=== PATIENT | female | born 1960 | race Caucasian/White ===

== ENCOUNTER 2017-08-14 22:03 | Inpatient (IN) | payer MEDICARE, MEDICAID ==
[~2017-08-14] VITALS: Ht 165.1 cm; Wt 51.7 kg
--- NOTE | 2017-08-14 22:35 | NUR ---
Pt refused rectal exam Dr. Peters notified
[2017-08-14 22:46] LABS: LYMPHOCYTES # (AUTO) 1.1 K/uL (20.0-40.0)
[2017-08-14 22:54] LABS: BASOPHILS % (AUTO) 0.5 % (0.0-2.0); EOSINOPHILS % (AUTO) 0.7 % (0.0-7.0); LYMPHOCYTES % (AUTO) 15.4 % (20.5-51.5); MEAN CORPUSCULAR HEMOGLOBIN 31.7 uug (24.7-32.8); MEAN CORPUSCULAR HGB CONC 33 g/dL (32.3-35.6); MEAN CORPUSCULAR VOLUME 95.2 fL (75.5-95.3); MONOCYTES # (AUTO) 0.4 K/uL (2.0-10.0); MONOCYTES % (AUTO) 6.2 % (0.0-11.0); NEUTROPHILS # (AUTO) 5.4 K/uL (1.8-8.9); NEUTROPHILS % (AUTO) 77.2 % (38.5-71.5); PLATELET COUNT (AUTO) 216 K/uL (179-408)
[2017-08-14 22:58] LABS: BILIRUBIN,DIRECT 0.1 mg/dL (0.0-0.2); BILIRUBIN,TOTAL 0.4 mg/dL (0.2-1.0); TOTAL PROTEIN, SERUM 5.8 g/dL (6.4-8.2)
[2017-08-14 23:02] LABS: RED BLOOD CELL COUNT(AUTO) 2.12 MIL/uL (3.63-4.92)
[2017-08-14 23:04] LABS: HEMOGLOBIN 6.7 g/dL (10.9-14.3)
[2017-08-14 23:05] LABS: HEMATOCRIT 20.2 % (31.2-41.9)
[2017-08-14 23:24] LABS: POTASSIUM 4.9 mmol/L (3.5-5.1)
[2017-08-15] VITALS (9 sets, daily range): BP systolic 95–175; BP diastolic 48–74
[2017-08-15 00:31] LABS: BAND % (MANUAL) 2 % (0-10); LYMPHOCYTES % (MANUAL) 14 % (20-40); MONOCYTES % (MANUAL) 2 % (2-10); NEUTROPHILS % (MANUAL) 82 % (42-75)
--- NOTE | 2017-08-15 00:39 | NUR ---
[facility] paged for Dr Peters
--- NOTE | 2017-08-15 02:00 | NUR ---
Pt. admitted to TELE, under care of Dr. MARTIN Belongs List completed
--- NOTE | 2017-08-15 02:15 | NUR ---
RECEIVED PT FROM ER BY Gabriela MONTEMAYOR. PT IS ALERT BUT VERY CONFUSED. PT IS ADMITTED TO TELE UNDER THE CARE OF DR MARTIN. DX: ANEMIA. BELONGING LIST DONE. ADMISSION PROCESS AND CAREPLAN INITIATED. WILL CALL MD FOR NEW ADMISSION ORDERS.
--- NOTE | 2017-08-15 04:00 | NUR ---
ERVIN CYR CALLED DR. MARTIN FOR MED RECONCILIATION AND NEW ADMISSION ORDERS. PER MD, WILL TAKE CARE OF NEW ADMISSION ORDERS IN THE MORNING.
--- NOTE | 2017-08-15 04:45 | NUR ---
CALLED FAMILY SPOKE WITH PT SON AND [id number] TO OBTAIN CONSENT FOR BLOOD TRANSFUSION. PT IS UNABLE TO PROVEIDE CONSENT ON HER OWN DUE TO MENTAL STATUS/CONDITION. FAMILY GAVE CONSENT BY A TELEPHONE AND WITNESSED BY 2 LICENSED RN. PT FAMILY VERBALIZE UNDERSTANDING. CONSENT FOR BLOOD TRANSFUSION PLACED IN PT CHART.
[2017-08-15] MEDS ORDERED: INSU100V (05:08)
[2017-08-15] MEDS ORDERED: PROHEAL PO (05:08)
[2017-08-15] MEDS ORDERED: CYAN10009 PO (05:25)
[2017-08-15] MEDS ORDERED: FOLI0.8T2 PO (05:25)
[2017-08-15] MEDS: ACETAMINOPHEN 325 MG TABLET PO PRN ×2 (05:26→22:07)
[2017-08-15 05:34] LABS: *OCCULT BLOOD STOOL POSITIVE (NEGATIVE)
--- NOTE | 2017-08-15 05:40 | NUR ---
STARTED BLOOD TRANSFUSION FOLLOWED THE PROTOCOL. VITAL SIGNS TAKEN AND WILL CONTINUE TO MONITOR .
--- NOTE | 2017-08-15 06:00 | NUR ---
CALLED ER SEVERAL TIMES TO GET PATIENT'S TMS. ORDERS PENDING OF THIS TIME.
--- NOTE | 2017-08-15 06:00 | NUR ---
BLOOD TRANSFUSING. PT TOLERATING THE PROCEDURE WELL. PT IS IN NO DISTRESS. NO SOB. NO ADVERSE REACTION.
--- NOTE | 2017-08-15 06:45 | NUR ---
BLOOD TRANSFUSING, PATIENT IS ALERT, NO SIGNS OF DISTRESS. ENDORSED TO DAY SHIFT RN TO CONTINUE BLOOD TRANSFUSION, MONITOR AND COMPLETE/END TRANSFUSION WHEN DONE.
[2017-08-15] MEDS ORDERED: DEXTROSE 50% 50 ML DISP.SYRIN IV PRN (08:00)
[2017-08-15] MEDS ORDERED: INSULIN REGULAR, HUMAN 300 UNIT/3 ML VIAL SQ PRN (08:00)
--- NOTE | 2017-08-15 11:08 | NUR ---
Patient refusing to wear the tele monitor.
[2017-08-15] MEDS: BLOOD SUGAR DIAGNOSTIC 1 EACH STRIP VI SCH ×3 (11:44→21:00)
[2017-08-15 11:52] LABS: BASOPHILS % (AUTO) 0.4 % (0.0-2.0); EOSINOPHILS % (AUTO) 0.6 % (0.0-7.0); HEMATOCRIT 24.9 % (31.2-41.9); HEMOGLOBIN 8.5 g/dL (10.9-14.3); LYMPHOCYTES # (AUTO) 1.1 K/uL (20.0-40.0); LYMPHOCYTES % (AUTO) 15.4 % (20.5-51.5); MEAN CORPUSCULAR HGB CONC 34 g/dL (32.3-35.6); MEAN CORPUSCULAR VOLUME 93.3 fL (75.5-95.3); MONOCYTES # (AUTO) 0.4 K/uL (2.0-10.0); MONOCYTES % (AUTO) 5.6 % (0.0-11.0); NEUTROPHILS # (AUTO) 5.3 K/uL (1.8-8.9); PLATELET COUNT (AUTO) 214 K/uL (179-408); RED BLOOD CELL COUNT(AUTO) 2.66 MIL/uL (3.63-4.92); WHITE BLOOD COUNT (AUTO) 6.8 K/uL (3.8-11.8)
[2017-08-15 12:05] LABS: CREATININE 5.5 mg/dL (0.6-1.3); PHOSPHOROUS 3.2 mg/dL (2.5-4.9); POTASSIUM 5.3 mmol/L (3.5-5.1)
[2017-08-15] MEDS: QUETIAPINE FUMARATE 25 MG TABLET PO PRN ×2 (15:19→22:07)
[2017-08-15] MEDS: FOLIC ACID/VITAMIN B COMP W-C TABLET PO SCH (15:35)
[2017-08-15] MEDS: PANTOPRAZOLE SODIUM 40 MG VIAL IV SCH ×2 (15:35→22:07)
[2017-08-15] MEDS: INSULIN DETEMIR 300 UNIT/3 ML CARTRIDGE SQ SCH (21:00)
--- NOTE | 2017-08-15 22:21 | NUR ---
NURSING CLINICAL NOTE: Pt has a BS of 65, Alert, oriented. orange juice and apple sauce were given will continue to monitor.
--- NOTE | 2017-08-15 22:36 | NUR ---
NURSING CLINICAL NOTE: Pt has a BP of 175/66 mmHg. denies pain, or SOB. is notified. no new orders. will continue to monitor.
--- NOTE | 2017-08-15 22:51 | NUR ---
NURSING CLINICAL NOTE: Rechecked BS and found 104. pt is asymptomatic. will continue to monitor.
[2017-08-16] VITALS (7 sets, daily range): BP systolic 136–175; BP diastolic 60–75
--- NOTE | 2017-08-16 06:48 | NUR ---
NURSING CLINICAL NOTE: Pt has the latest BS 71, crackers and apple sauce were given, will continue to monitor and endorse pt to the next nurse to follow up.
[2017-08-16] MEDS: BLOOD SUGAR DIAGNOSTIC 1 EACH STRIP VI SCH ×4 (06:51→21:16)
[2017-08-16 07:25] LABS: BASOPHILS % (AUTO) 0.3 % (0.0-2.0); EOSINOPHILS # (AUTO) 0.1 K/uL (0.0-0.7); EOSINOPHILS % (AUTO) 0.9 % (0.0-7.0); HEMATOCRIT 26.4 % (31.2-41.9); HEMOGLOBIN 8.9 g/dL (10.9-14.3); LYMPHOCYTES # (AUTO) 1.1 K/uL (20.0-40.0); LYMPHOCYTES % (AUTO) 12.2 % (20.5-51.5); MEAN CORPUSCULAR HEMOGLOBIN 31.3 uug (24.7-32.8); MEAN CORPUSCULAR HGB CONC 34 g/dL (32.3-35.6); MEAN CORPUSCULAR VOLUME 92.9 fL (75.5-95.3); MONOCYTES # (AUTO) 0.5 K/uL (2.0-10.0); MONOCYTES % (AUTO) 5.3 % (0.0-11.0); NEUTROPHILS # (AUTO) 7.2 K/uL (1.8-8.9); NEUTROPHILS % (AUTO) 81.3 % (38.5-71.5); PLATELET COUNT (AUTO) 227 K/uL (179-408); RED BLOOD CELL COUNT(AUTO) 2.85 MIL/uL (3.63-4.92); WHITE BLOOD COUNT (AUTO) 8.8 K/uL (3.8-11.8)
[2017-08-16 07:45] LABS: BILIRUBIN,TOTAL 0.6 mg/dL (0.2-1.0); CREATININE 6.3 mg/dL (0.6-1.3); MAGNESIUM 2.5 mg/dL (1.8-2.4); PHOSPHOROUS 3.8 mg/dL (2.5-4.9); POTASSIUM 5.6 mmol/L (3.5-5.1)
[2017-08-16] MEDS ORDERED: CYANOCOBALAMIN 1,000 MCG TABLET PO SCH (09:00)
[2017-08-16] MEDS ORDERED: FOLIC ACID/VITAMIN B COMP W-C TABLET PO SCH (09:00)
[2017-08-16] MEDS: FOLIC ACID/VITAMIN B COMP W-C TABLET PO SCH (09:08)
[2017-08-16] MEDS: PANTOPRAZOLE SODIUM 40 MG VIAL IV SCH ×2 (09:59→20:34)
[2017-08-16] MEDS ORDERED: AZITHROMYCIN IV 250 MG in IV DEXTROSE 5% 250 ML IV SCH (15:00)
--- NOTE | 2017-08-16 20:00 | NUR ---
RECEIVED PATIENT AWAKE IN BED. ALERT TO SELF. PATIENT IS CONFUSED AND DISORIENTED AND NEEDS FREQUENT REDIRECTION. DENIES PAIN OR DISCOMFORT. NO FACIAL GRIMACE NOTED. H/L INTACT AND PATENT. CALL LIGHT IN REACH. BED ALARM ON. ALL NEEDS ATTENDED. WILL CONTINUE TO MONITOR.
[2017-08-16] MEDS: INSULIN DETEMIR 300 UNIT/3 ML CARTRIDGE SQ SCH (21:17)
--- NOTE | 2017-08-17 03:45 | NUR ---
PATIENT AWAKE IN BED. ASKING FOR FOOD AND THEN STATING SHE IS TIRED. CONFUSED AT TIMES. MADE COMFORTABLE. BED ALARM ON. ALL NEEDS ATTENDED. WILL CONTINUE TO MONITOR. CALL LIGHT IN REACH.
--- NOTE | 2017-08-17 04:52 | NUR ---
PATIENT FOUND UNRESPONSIVE IN BED. CAROLYN WOODS CALLED AND CPR STARTED.
[2017-08-17] MEDS ORDERED: SODIUM BICARBONATE 8.4% 50 MEQ/50 ML DISP.SYRIN IV ONE (05:00)
[2017-08-17] MEDS ORDERED: IV NORMAL SALINE 1000 ML BAG ONE (05:00)
[2017-08-17] MEDS ORDERED: EPINEPHRINE 1:10,000 1 MG/10 ML DISP.SYRIN ONE (05:00)
[2017-08-17] MEDS ORDERED: ATROPINE SULFATE 1 MG/10 ML DISP.SYRIN ONE (05:00)
--- NOTE | 2017-08-17 05:08 | NUR ---
PATIENT PRONOUNCED PER DR. JIMÉNEZ.
--- NOTE | 2017-08-17 05:25 | NUR ---
CALLED OUT TO DR. DYE RING MAKER TO INFORM HIM OF PATIENTS PASSING.
--- NOTE | 2017-08-17 05:30 | NUR ---
NOTIFIED OF PATIENTS PASSING.
== END 2017-08-17 05:08 | disposition expired | DRG 811 ==
LOC: ER 22:06 → TELE 22:49 → MED 08-16 13:50
PROVIDERS: ADMIT Internal Medicine; ATTEND Internal Medicine
PROC: 30233N1 Transfusion of Nonautologous Red Blood Cells into Peripheral Vein, Percutaneous Approach (ICD-10-PCS; principal; 2017-08-15)
PROC: 5A12012 Performance of Cardiac Output, Single, Manual (ICD-10-PCS; 2017-08-16)
PROC: 0BH17EZ Insertion of Endotracheal Airway into Trachea, Via Natural or Artificial Opening (ICD-10-PCS; 2017-08-16)
DX: D64.9 Anemia, unspecified (principal); N18.6 End stage renal disease; I21.4 Non-ST elevation (NSTEMI) myocardial infarction; G93.41 Metabolic encephalopathy; I13.11 Hypertensive heart and chronic kidney disease without heart failure, with stage 5 chronic kidney disease, or end stage renal disease; K92.2 Gastrointestinal hemorrhage, unspecified; E11.22 Type 2 diabetes mellitus with diabetic chronic kidney disease; Z99.2 Dependence on renal dialysis; Z79.4 Long term (current) use of insulin; Z79.899 Other long term (current) drug therapy; K52.9 Noninfective gastroenteritis and colitis, unspecified; E78.5 Hyperlipidemia, unspecified; K21.9 Gastro-esophageal reflux disease without esophagitis; Z87.440 Personal history of urinary (tract) infections
CPT/HCPCS: 36415; 70030-TC; 71045; 83690; 83735; 84100; 85025; 85730; 86850; 86900; 86901; 86920; 93005; 93307; A4663; C9113; J0171; J0456; J0461; J1815; J3490; J7030; J7040; J7060; P9016-BL; P9021